=== PATIENT | male | born 1965 | race Caucasian/White ===

== ENCOUNTER 2019-06-06 02:27 | Emergency (ER) | payer BC ==
--- NOTE | 2019-06-06 04:09 | RADIOLOGY REPORT (SQ) ---
CLINICAL HISTORY: headache COMPARISON: None. TECHNIQUE: CT HEAD WITHOUT IV CONTRAST on 06/06/2019 12:00 AM [employer] This exam was performed according to our departmental dose-optimization program, which includes automated exposure control, adjustment of the mA and/or kV according to patient size and/or use of iterative reconstruction technique. FINDINGS: There is no acute hemorrhage, mass effect or midline shift. Martins-white differentiation is preserved. There is no hydrocephalus. There is no significant volume loss for age. The calvarium is intact. Orbits and globes are unremarkable. The paranasal sinuses are clear. Mastoid air cells are clear. IMPRESSION: No acute intracranial findings.
[2019-06-06] MEDS ORDERED: NORMAL SALINE 1000 ML 1,000 ML IV ONE (05:37)
[2019-06-06] MEDS ORDERED: KETOROLAC TROMETHAMINE INJ/PF 30 MG/1 ML SDV IV ONE (05:38)
[2019-06-06] MEDS ORDERED: ACETAMINOPHEN 325 MG TABLET PO ONE (05:38)
[2019-06-06 05:51] LABS: ABSOLUTE EOSINOPHILS # (AUTO) 0.1 10^3/uL (0.0-0.6); ABSOLUTE LYMPHOCYTES (AUTO) 1.6 10^3/uL (0.5-4.7); ABSOLUTE MONOCYTES (AUTO) 0.6 10^3/uL (0.1-1.4); ABSOLUTE NEUT (AUTO) 6.5 10^3/uL (1.7-8.2); BASOPHILS % (AUTO) 0.5 % (0-2); EOSINOPHILS % (AUTO) 0.9 % (0-6); HEMATOCRIT 42.1 % (37.9-51.0); HEMOGLOBIN 14.7 g/dL (13.5-17.0); LYMPHOCYTES % (AUTO) 18.2 % (13-45); MEAN CORPUSCULAR HEMOGLOBIN 29.9 pg (27.0-33.4); MEAN CORPUSCULAR HGB CONC 34.9 g/dL (32.0-36.0); MEAN CORPUSCULAR VOLUME 86 fl (80-97); MONOCYTES % (AUTO) 6.8 % (3-13); PLATELET COUNT 239 10^3/uL (150-450); RED BLOOD COUNT 4.91 10^6/uL (4.35-5.55); RED CELL DISTRIBUTION WIDTH 13.5 % (11.5-14.0); SEGMENTED NEUTROPHILS % (AUTO) 73.6 % (42-78); TOTAL CELLS COUNTED % (AUTO) 100 %; WHITE BLOOD COUNT 8.8 10^3/uL (4.0-10.5)
[2019-06-06 05:52] LABS: ALKALINE PHOSPHATASE 73 U/L (38-126); ANION GAP 7 (5-19); ASPARTATE AMINO TRANSFERASE 37 U/L (17-59); BILIRUBIN,DIRECT 0.2 mg/dL (0.0-0.4); BILIRUBIN,TOTAL 0.8 mg/dL (0.2-1.3); BLOOD UREA NITROGEN 15 mg/dL (7-20); CALCIUM 8.6 mg/dL (8.4-10.2); CARBON DIOXIDE 30 mmol/L (22-30); CHLORIDE 102 mmol/L (98-107); GLUCOSE 99 mg/dL (75-110)
[2019-06-06 05:55] LABS: POTASSIUM 2.9 mmol/L (3.6-5.0)
[2019-06-06] MEDS ORDERED: POTASSIUM CHLORIDE 10 MEQ CAPSULE.ER PO ONE (06:07)
--- NOTE | 2019-06-06 06:42 | ER Document Report ---
ED Blood Pressure Problem - General Chief Complaint: High Blood Pressure Stated Complaint: HIGH BLOOD PRESSURE HEADACHE Time Seen by Provider: 06/06/19 04:29 Information source: Patient Notes: Mr. Lyn is a 53 yo m w/ PMH hypertension presenting to the ED with headache. Patient states that he is been compliant with his medications. The headache is quite diffuse. He states that he developed a headache almost every single night for the past week around 7 PM. He states that the headache is quite different use and he will use intermittent Tylenol Motrin with some more minimal relief. He denies any changes in vision, dull pain, vomiting or diarrhea. Some mild nausea. Patient also adds that when he stood up earlier this evening, he got lightheaded. The states that he does not drink much water throughout the day and he states he drinks 2-3 bottles of water max. He also drinks 2 to 3 cups of coffee daily. Patient denies any chest pain, shortness of breath or abdominal pain. TRAVEL OUTSIDE OF THE [place] IN LAST 30 DAYS: No - Related Data Allergies/Adverse Reactions: amlodipine Allergy (Verified 06/06/19 03:09) Home Medications: See med rec Past Medical History - Social History Smoking Status: Never Smoker Chew tobacco use (# tins/day): No Frequency of alcohol use: 1 beer a wk Drug Abuse: None Family History: Reviewed & Not Pertinent Patient has suicidal ideation: No Patient has homicidal ideation: No - Past Medical History Cardiac Medical History: Reports: Hx Hypertension Review of Systems - Review of Systems Constitutional: See HPI EENT: No symptoms reported Cardiovascular: See HPI Respiratory: No symptoms reported Gastrointestinal: No symptoms reported Genitourinary: No symptoms reported Male Genitourinary: No symptoms reported Musculoskeletal: No symptoms reported Skin: No symptoms reported Hematologic/Lymphatic: No symptoms reported Neurological/Psychological: No symptoms reported Physical Exam - Vital signs Vitals: Temp Pulse Resp BP Pulse Ox 98.5 F 62 16 191/94 H 98 06/06/19 02:53 06/06/19 02:53 06/06/19 02:53 06/06/19 02:53 06/06/19 02:53 Interpretation: Hypertensive - General General appearance: Appears well, Alert - HEENT Head: Normocephalic, Atraumatic Eyes: Normal Pupils: PERRL Mucous membranes: Dry - Respiratory Respiratory status: No respiratory distress Chest status: Nontender Breath sounds: Normal Chest palpation: Normal - Cardiovascular Rhythm: Regular Heart sounds: Normal auscultation Murmur: No - Abdominal Inspection: Normal Distension: No distension Bowel sounds: Normal Tenderness: Nontender Organomegaly: No organomegaly - Back Back: Normal, Nontender - Extremities General upper extremity: Normal inspection, Nontender, Normal color, Normal ROM, Normal temperature General lower extremity: Normal inspection, Nontender, Normal color, Normal ROM, Normal temperature, Normal weight bearing. No: Ale's sign - Neurological Neuro grossly intact: Yes Cognition: Normal Orientation: AAOx4 Elena Coma Scale Eye Opening: Spontaneous [place] Coma Scale Verbal: Oriented Elena Coma Scale Motor: Obeys Commands Elena Coma Scale Total: 15 Speech: Normal Motor strength normal: LUE, RUE, LLE, RLE Sensory: Normal - Psychological Associated symptoms: Normal affect, Normal mood - Skin Skin Temperature: Warm Skin Moisture: Dry Skin Color: Normal Course - Re-evaluation Re-evalutation: Patient is generally well-appearing nontoxic. Initial vitals notable for elevated blood pressure. Differential diagnosis includes hypertensive urgency, medication noncompliance, ACS (less likely), ICH, (less likely), migraine, genetic, cluster headache Patient was ordered for Tylenol from triage as well as a head CT. CT unremarkable. Basic labs including CBC and troponin are within normal limits. CMP notable for hypokalemia 2.9. Patient given p.o. repletion. EKG was nonischemic. I do feel that the patient pain and headache is driving his blood pressure. He also endorses some lightheadedness when he stands up quickly, likely related to his recent addition of metoprolol. Patient's neuro examination is otherwise unremarkable. Patient was given Toradol and IV fluids. He felt significantly improved and b lood pressure improved spontaneously. Patient recommended to stay well-hydrated and recommended to use Tylenol and Motrin as needed for headache. Patient also recommended to allow his body a few extra moments to equal liberalized between aced lying down horizontal position and standing up quickly. Patient given return precautions instructed to check his blood pressure regularly and follow- up with his primary care doctor should his blood pressure remain elevated. - Vital Signs Vital signs: Temp Pulse Resp BP Pulse Ox 98.5 F 62 18 148/87 H 100 06/06/19 02:53 06/06/19 02:53 06/06/19 07:00 06/06/19 06:46 06/06/19 06:46 - Laboratory Result Diagrams: 06/06/19 04:25 06/06/19 04:25 Laboratory results interpreted by me: 06/06/19 04:25 Potassium 2.9 L* - EKG Interpretation by Me EKG shows normal: Sinus rhythm, [place], QRS Complexes Rate: Bradycardia Rhythm: NSR Heart block present: 1st Degree When compared to previous EKG there are: Previous EKG unavailable Discharge - Discharge Clinical Impression: Elevated blood pressure reading in office with diagnosis of hypertension, Headache, Hypokalemia, Dehydration Condition: Good Disposition: HOME, SELF-CARE Instructions: Beta Blockers ([facility]), High Blood Pressure ([facility]), High Blood Pressure, Requiring Treatment ([facility]), Hypokalemia ([facility]) Additional Instructions: It is important that you drink at least eight 8 ounce glasses of water throughout the day. It is also important that you take a moment or 2 before completely standing up from a seated position to allow your heart to regulate itself given that you are on beta-abraham medication, metoprolol. I would recommend that you increase your intake of foods that are high in potassium over the next 2 to 3 days. Use Tylenol and/or Motrin as needed for headache. Follow-up with your primary care doctor. If you develop worsening headache, significantly elevated blood pressure, chest pain, or any other concerning symptoms, please return to the ED for further evaluation.
[2019-06-06 06:50] VITALS: BP 148/87
--- NOTE | 2019-06-06 16:19 | EKG REPORT ---
SEVERITY:- NORMAL ECG - SINUS RHYTHM : Confirmed by: Anny Hannah MD 06-Jun-2019 16:18:14
== END 2019-06-06 07:13 | disposition home or self-care (01) ==
LOC: ER 02:27
DX: I10 Essential (primary) hypertension (principal); R51 Headache; E87.6 Hypokalemia; E86.0 Dehydration; R11.0 Nausea; R42 Dizziness and giddiness
CPT/HCPCS: 93005; 99284; 96361; 96374; 36415; 85025; 80053; 84484; 70450; 93010; J1885; J7030